=== PATIENT | male | born 1930 | race Caucasian/White ===

== ENCOUNTER 2017-08-03 09:38 | Emergency (ER) | payer OTHER ==
[~2017-08-03] VITALS: Ht 175.3 cm; Wt 79.4 kg
[~2017-08-03 09:38] MED LIST: CARVEDILOL3.125 MG; COZAAR50 MG; GLUCOTROL10 MG; JANUMET 50-501 UDTAB; MAXIMUM D310000 UNIT; PROSCAR5 MG; TAMS0.4C; VYTORIN 10/40 M1 TAB
== END 2017-08-03 13:17 | disposition home or self-care (01) ==
LOC: ER 09:38
DX: I63.8 Other cerebral infarction (principal)

== ENCOUNTER 2017-08-30 10:45 | Outpatient (CLI) | payer OTHER | END 2017-08-30 10:55 | disposition home or self-care (01) | LOC: LAB 10:45 | DX: E11.65 Type 2 diabetes mellitus with hyperglycemia (principal); A08.19 Acute gastroenteropathy due to other small round viruses; K52.81 Eosinophilic gastritis or gastroenteritis ==